=== PATIENT | female | born 1985 | race Caucasian/White ===

== ENCOUNTER 2017-03-26 22:29 | Emergency (ER) | payer OTHER ==
[~2017-03-26 22:29] MED LIST: PREN1CAP7 PO; TRUE METRIX BLO1 KIT; ZANT150T2 PO
--- NOTE | 2017-03-26 23:32 | PD ---
HPI Chief Complaint Contractions Travel History International Travel<30 Days: No Contact w/Intl Traveler<30Days: No Known Affected Area: No History of Present Illness HPI 31-year-old 001, IUP at 39.5 care complicated by obesity, asthma Patient presents complaining of painful contractions that started at 5 PM the range from every 2-10 minutes but on average she is having them every 5 minutes. She reports a increased in intensity and frequency over time. They feel better when she sitting on her birthing ball but otherwise there are no aggravating or alleviating factors and no other attempted treatments. The patient reports good movement. The patient denies any leaking of fluid or vaginal bleeding. The patient reports she had intercourse about 9:30 PM. Weeks Gestation: 39 Para: 1 : 2 History Past Medical History Narrative Medical Obesity, asthma Obstetric History Obstetric History 001 1 Past Surgical History Surgical History: No Previous Surgery Family History Narrative Family History TM, HTN, CVA Social History Alcohol Use: No Tobacco Use: No Substance Abuse: No Allergies-Medications (Allergen,Severity, Reaction): Uncoded Allergies: seasonal alleries (Allergy, Mild, 02/20/16) itchy eyes and coughing. Home Meds Active Scripts True Metrix Blood Glucose W/Device (True Metrix Blood Glucose W/Device) 1 Kit Kit, KIT .XX DIRECTED for Blood Sugar Management, #1 0 Refills Prov:Khalida Mari 02/20/17 Ranitidine (Zantac) 150 Mg Tab, 150 MG PO BID for Reduce Stomach Acid, #60 TAB 6 Refills Prov:Khalida Mari 01/16/17 W/O Vit A W/ Fe Fumar (Citranatal [place]) 27-1-260 Mg Cap, 1 CAP PO DAILY for Nutritional Supplement, #30 CAP 11 Refills Prov:Khalida Mari 08/06/16 W/O Vit A W/ Fe Fumar (Citranatal [place]) 27-1-260 Mg Cap Prov:Khalida Mari 08/06/16 Review of Systems Except as stated in HPI: all other systems reviewed are Neg Physical Exam Narrative GENERAL: Well-nourished, well-developed patient. SKIN: Warm and dry. HEAD: Normocephalic and atraumatic. EYES: No scleral icterus. No injection or drainage. ENT: No nasal drainage noted. Mucous membranes pink. Airway patent. NECK: Supple, trachea midline. No JVD. CARDIOVASCULAR: Regular rate and rhythm without murmurs, gallops, or rubs. RESPIRATORY: Breath sounds equal bilaterally. No accessory muscle use. BREASTS: Deferred ABDOMEN/GI: Abdomen soft, non-tender, bowel sounds present, no rebound, no guarding Gravid GENITOURINARY: External Genitalia: intact and normal in appearance. Normal BUS. Grossly normal rugae. Physiologic discharge, no cervical or vaginal masses noted. SVE 2/thick/high and posterior, unchanged over observation period FHT's: heart tones are in the 120s with moderate long-term variability, good accelerations, no decelerations with a reactive NST and category 1 heart rate tracing EXTREMITIES: No cyanosis or edema. BACK: Nontender without obvious deformity. No CVA tenderness. NEUROLOGICAL: Awake and alert. Motor and sensory grossly within normal limits. Five out of 5 muscle strength in all muscle groups. Normal speech. Psychiatric: Grossly normal memory and affect Musculoskeletal: Grossly normal range of motion, gait, muscle strength MDM Plan Assessment/plan: 1. IUP at 39.5 2. Contractions at term: No evidence of active labor with unchanged cervical exam over observation period. Patient offered Vistaril for rest. Strict labor precautions are given. Discussed signs and symptoms of labor 3. Maternal obesity 4. Maternal asthma 5. well-being: Reassuring testing was reactive NST and FHR that 's reassuring and appropriate for gestational age, category 1 tracing. kick counts daily. 6. Follow-up: Diagnosis Diagnosis: Primary Impression: 39 weeks gestation of Additional Impression: False labor before 37 completed weeks of gestation during in third trimester, antepartum Disposition: 01 DISCHARGE HOME Condition: Critical Khalida Tate MD Mar 26, 2017 23:32
--- NOTE | 2017-03-27 | PD ---
History of Present Illness History of Present Illness NST report Indications IUP at 39.5, maternal obesity, asthma heart rate baseline in the 120s with moderate long-term variability, good accelerations, no decelerations noted. This is a category 1 heart rate tracing and reactive NST Follow-up as clinically indicated Final diagnosis: IUP at 39.5, maternal obesity, asthma, reassuring testing, false labor Khalida Tate MD Mar 27, 2017 00:00
[2017-03-27] MEDS ORDERED: fentaNYL 2MCG-BUPIV 0.125% INJ 100 ML ONE (05:30)
[2017-03-27] MEDS ORDERED: LIDOCAINE HCL 1% 50 ML VIAL ONE (05:31)
[2017-03-27] MEDS ORDERED: OXYTOCIN 30 UNITS-500ML PREMIX 500 ML ONE (05:31)
== END 2017-03-27 00:50 | disposition home or self-care (01) ==
LOC: HOBED 22:29
DX: O47.03 False labor before 37 completed weeks of gestation, third trimester (principal); O99.513 Diseases of the respiratory system complicating pregnancy, third trimester; J45.909 Unspecified asthma, uncomplicated; O99.213 Obesity complicating pregnancy, third trimester; Z3A.39 39 weeks gestation of pregnancy
CPT/HCPCS: 59025; 82948; J2590

== ENCOUNTER 2017-03-27 05:13 | Inpatient (IN) | payer OTHER ==
[~2017-03-27] VITALS: Ht 167.6 cm; Wt 115.0 kg
[2017-03-27] VITALS (43 sets, daily range): BP systolic 96–130; BP diastolic 55–92; PULSE 68–189; RESP 17–18; TEMP 97.3–98.5
[2017-03-27] MEDS ORDERED: LACTATED RINGER'S 1000 ML INJ 1,000 ML IV PRN (05:47)
[2017-03-27] MEDS ORDERED: LACTATED RINGER'S 1000 ML INJ 1,000 ML IV SCH (05:47)
[2017-03-27 05:54] LABS: AUTOMATED NEUTROPHIL # 12.3 TH/MM3 (1.8-7.7); BASOPHIL % 0.1 % (0.0-2.0); HEMO FLAGS DIFF FINAL; LYMPHOCYTE # 1.6 TH/MM3 (1.0-4.8); MEAN CELL VOLUME 83.5 FL (80.0-100.0); MEAN CORPUSCULAR HEMOGLOBIN 28.9 PG (27.0-34.0); MEAN CORPUSCULAR HGB CONC 34.6 % (32.0-36.0); MONO % 2.3 % (0.0-8.0); NEUT % 86.6 % (16.0-70.0); PLATELET COUNT 276 TH/MM3 (150-450); RED BLOOD COUNT 4.43 MIL/MM3 (4.00-5.30); RED CELL DISTRIBUTION WIDTH 14.5 % (11.6-17.2); WHITE BLOOD COUNT 14.2 TH/MM3 (4.0-11.0)
[2017-03-27] MEDS ORDERED: MINERAL OIL 10 ML VIAL TOPICAL PRN (06:00)
[2017-03-27] MEDS ORDERED: CITRIC ACID-SODIUM CITRATE LIQ 30 ML UDC PO SCH (06:00)
[2017-03-27] MEDS ORDERED: LIDOCAINE HCL 1% 50 ML VIAL I-DERMAL PRN (06:00)
[2017-03-27] MEDS ORDERED: SODIUM CHLORID 0.9% 500 ML INJ 500 ML IV PRN (06:00)
[2017-03-27] MEDS ORDERED: OXYTOCIN 30 UNITS-500ML PREMIX 500 ML IV ONE (06:00)
[2017-03-27] MEDS ORDERED: LIDOCAINE HCL 1% 50 ML VIAL INFIL PRN (06:00)
[2017-03-27] MEDS ORDERED: SODIUM CHLOR 0.9% 1000 ML INJ 1,000 ML IV PRN (06:07)
[2017-03-27 06:08] LABS: BACTERIA, URINE RARE /hpf; BLOOD, URINE NEG (NEG); COMMENT (UR) CULT NOT INDICATED; CULTURE IF INDICATED CULT NOT INDICATED; GLUCOSE,URINE NEG (NEG); KETONE, URINE 80 mg/dL (NEG); MUCUS URINE FEW /lpf (OCC); NITRITE,URINE NEG (NEG); PH, URINE 6.5 (5.0-8.5); SQUAMOUS EPITHELIAL CELL URINE 13 /hpf (0-5); URINE COLOR YELLOW (YELLW/STRAW)
--- NOTE | 2017-03-27 06:08 | HHI.HP ---
History & Physical H&P HPI HPI Travel History International Travel<30 Days: No Contact w/Intl Traveler<30Days: No Known Affected Area: No History of Present Illness HPI 31-year-old 001, IUP at 39.5 care complicated by obesity, asthma Patient presents complaining of painful contractions that she states are extremely painful and occurring every 3 min. They feel better when she sitting on her birthing ball but otherwise there are no aggravating or alleviating factors and no other attempted treatments. The patient reports good movement. The patient denies any leaking of fluid or vaginal bleeding. Was here yesterday evening for frequent contractions; she had intercourse at about 9 :30 PM beforehand. On admission, was SVE 2/thick/high and posterior - was d/c'd because of unchanged exam over observation periodWas d/c'd hope because of unchanged cervical exam over observation period. Weeks Gestation: 39 Para: 1 : 2 History (Limited) History Past Medical History Narrative Medical Obesity Asthma GDM Obstetric History Obstetric History 001 1 Past Surgical History Surgical History: No Previous Surgery Family History Narrative Family History TM, HTN, CVA Social History Alcohol Use: No Tobacco Use: No Substance Abuse: No Allergies-Medications Allergies-Medications (Allergen,Severity, Reaction): Uncoded Allergies: seasonal alleries (Allergy, Mild, 02/20/16) itchy eyes and coughing. Home Meds Active Scripts True Metrix Blood Glucose W/Device (True Metrix Blood Glucose W/Device) 1 Kit Kit, KIT .XX DIRECTED for Blood Sugar Management, #1 0 Refills Prov:Khalida Mari 02/20/17 Ranitidine (Zantac) 150 Mg Tab, 150 MG PO BID for Reduce Stomach Acid, #60 TAB 6 Refills Prov:Khalida Mari 01/16/17 W/O Vit A W/ Fe Fumar (Citranatal [place]) 27-1-260 Mg Cap, 1 CAP PO DAILY for Nutritional Supplement, #30 CAP 11 Refills Prov:Khalida Mari 08/06/16 W/O Vit A W/ Fe Fumar (Citranatal [place]) 27-1-260 Mg Cap Prov:Khalida Mari 08/06/16 ROS Review of Systems Except as stated in HPI: all other systems reviewed are Neg Physical Exam Physical Exam Narrative GENERAL: Well-nourished, well-developed patient. SKIN: Warm and dry. HEAD: Normocephalic and atraumatic. EYES: No scleral icterus. No injection or drainage. NECK: Supple, trachea midline. No JVD. RESPIRATORY: Breath sounds equal bilaterally. No accessory muscle use. GENITOURINARY: Cervix: [] Dilatation: 8 cm Effacement: 100 Station: -1 Presentation: [-] Membranes: intact Uterine Contractions: q 4 min FHT's: Category:1 Baseline: 130 Reactive: yes Variability: moderate Decels: no Data Data Data Orders Orders Ob (2e) Additional Admit Info (03/27/17 05:21) Complete Blood Count With Diff (03/27/17 05:29) Hold Clot (03/27/17 05:29) Abo/Rh Blood Type (03/27/17 05:29) Urinalysis - C+S If Indicated (03/27/17 05:40) Drug Screen, Random Urine (03/27/17 05:40) Group B Strep: Negative MDM MDM Medical Record Reviewed: Yes Plan Patient is a 31 y/o @39.5wks admitted for painful contractions. GBS negative. A+ blood type. In active labor phase, /-1. FHT Categ 1. - Anticipate delivery - Monitor and recheck after epidural administration Diagnosis Diagnosis: Primary Impression: 39 weeks gestation of Jenny Miller MD R1 Mar 27, 2017 06:08
--- NOTE | 2017-03-27 07:07 | PD.LABORPN ---
Subjective Subjective AROM @0651. Resulted in sparse mucus and blood discharge, very small amount of fluid. Tolerated well. Objective Vital Signs Vital Signs Date Time Temp Pulse Resp B/P (MAP) Pulse Ox O2 Delivery O2 Flow Rate FiO2 03/27/17 06:45 81 03/27/17 06:45 87 122/67 (85) 03/27/17 06:35 94 03/27/17 06:35 94 125/64 (84) 03/27/17 06:30 91 03/27/17 06:30 68 130/65 (86) 03/27/17 06:26 79 128/73 (91) 03/27/17 06:25 18 03/27/17 06:25 91 03/27/17 06:20 92 03/27/17 06:18 92 130/80 (97) 03/27/17 06:15 87 Objective Pelvic Exam: Cervix: midline Dilatation: 8 cm Effacement: 100% Station: -1 Presentation: vertex Membranes: ruptured Uterine Contractions: yes,q4min FHT's: Category: 1 Baseline: 130 Reactive: yes Variability: moderate Decels: no Gest Age Assessed Date: Mar 27, 2017 Gest Age Assessed Time: 07:06 Artificial rupture of membrane: Yes Artificial ROM date: Mar 27, 2017 Artifical ROM time: 06:51 Assessment/Plan Problem List: (1) 39 weeks gestation of ICD Codes: Z3A.39 - 39 weeks gestation of Status: Acute Assessment and Plan Recheck as needed Jenny Miller MD R1 Mar 27, 2017 07:06
[2017-03-27] MEDS ORDERED: OXYTOCIN 30 UNITS-500ML PREMIX 500 ML IV SCH (09:45)
[2017-03-27] MEDS ORDERED: WITCH HAZEL 50%/GLYCERIN 12.5% 40 PAD JAR TOPICAL PRN (09:45)
[2017-03-27] MEDS ORDERED: ALUMINUM/MAGNESIUM/SIMETH 30 ML CUP PO PRN (09:45)
[2017-03-27] MEDS ORDERED: DOCUSATE SODIUM 50 MG/SENNA 8.6 MG TAB PO PRN (09:45)
[2017-03-27] MEDS ORDERED: SODIUM CHLORIDE 0.9% FLUSH 10 ML FLUSH IV FLUSH PRN (09:45)
[2017-03-27] MEDS ORDERED: BENZOCAINE 20% TOPICAL SPRAY 60 ML CAN TOPICAL PRN (09:45)
[2017-03-27] MEDS ORDERED: ZOLPIDEM TARTRATE 5 MG TAB PO PRN (09:45)
[2017-03-27] MEDS ORDERED: SODIUM CHLORIDE 0.9% FLUSH 10 ML FLUSH IV FLUSH SCH (09:45)
[2017-03-27] MEDS ORDERED: ONDANSETRON ODT 4 MG TAB PO PRN (09:45)
--- NOTE | 2017-03-27 09:48 | PD.OB.DELI ---
Weeks gestation: 39 (6) Gest age assessed date: Mar 27, 2017 Gest age assessed time: 07:06 Pt started active labor?: Yes Active labor start date: Mar 27, 2017 Active labor start time: 02:00 Medical induction of labor?: No Artificial rupture of membrane: No Artificial ROM date: Mar 27, 2017 Artifical ROM time: 06:51 Anesthesia: Epidural Episiotomy: None Vaginal Delivery: Normal, Spontaneous Presentation: Occiput anterior Nuchal Cord: x1 Delayed cord clamping (45 sec): Yes : Male, Single Delivery date: Mar 27, 2017 Delivery time: 09:26 One Minute : 8 Five Minute : 9 Weight: 3225g Placenta: Spontaneous delivery, Intact, 3 vessel cord Laceration: No lacerations Estimated blood loss: 100cc Additional Information 31YO now delivered via at 39/6 weeks. SROM at 0820AM with clear amniotic fluid. APGARS 8/9. No lacerations. Dr Tate supervised and assisted. Dr Rod delivered. Chintan Rod MD R1 Mar 27, 2017 09:48
--- NOTE | 2017-03-27 09:52 | HHI.PR ---
Subjective Remarks The patient progressed to C/C/+1 and commenced spontaneous maternal expulsive efforts with overall reassuring heart tones and excellent descent. The head delivered spontaneously and atraumatically followed by spontaneous and atraumatic delivery of the anterior shoulder. A nuchal cord was noted but the was able to be delivered through the cord and the remainder of the delivered spontaneously and atraumatically. The was placed on the maternal abdomen and was vigorous at delivery. The cord was doubly clamped and cut after a delay. The placenta delivered spontaneously and appeared to be intact. No lacerations were noted. Apgars 8/9. Mother and baby are both doing well. Objective Vital Signs Date Time Temp Pulse Resp B/P (MAP) Pulse Ox O2 Delivery O2 Flow Rate FiO2 03/27/17 09:16 189 126/78 (94) 03/27/17 08:45 75 125/72 (89) 03/27/17 08:31 74 127/68 (87) 03/27/17 08:24 18 03/27/17 08:15 87 122/74 (90) 03/27/17 08:05 83 03/27/17 08:00 92 119/71 (87) 03/27/17 08:00 17 03/27/17 08:00 84 03/27/17 07:55 87 03/27/17 07:50 77 03/27/17 07:45 83 102/63 (76) 03/27/17 07:45 18 03/27/17 07:45 103 03/27/17 07:40 80 03/27/17 07:35 80 03/27/17 07:31 74 96/61 (73) 03/27/17 07:30 77 03/27/17 07:25 78 03/27/17 07:20 73 03/27/17 07:16 75 108/55 (72) 03/27/17 07:15 92 03/27/17 07:10 97.3 17 03/27/17 07:10 82 03/27/17 07:05 90 03/27/17 07:00 79 122/63 (82) 03/27/17 07:00 18 03/27/17 06:55 92 03/27/17 06:50 89 03/27/17 06:45 81 03/27/17 06:45 87 122/67 (85) 03/27/17 06:35 94 03/27/17 06:35 94 125/64 (84) 03/27/17 06:30 91 03/27/17 06:30 68 130/65 (86) 03/27/17 06:26 79 128/73 (91) 03/27/17 06:25 18 03/27/17 06:25 91 03/27/17 06:20 92 03/27/17 06:18 92 130/80 (97) 03/27/17 06:15 87 Result Diagram: 03/27/17 0530 Khalida Tate MD Mar 27, 2017 09:52
[2017-03-27] MEDS: IBUPROFEN 800 MG TAB PO PRN (15:34)
[2017-03-27] MEDS: ACETAMINOPHEN 325 MG TAB PO PRN ×2 (15:34→19:49)
[2017-03-27] MEDS ORDERED: DIPHTH/TETANUS/ACEL PERTUSSIS (BOOSTER) 0.5 ML VIAL/PFS IM ONE (16:00)
[2017-03-27] MEDS ORDERED: MEASLES, MUMPS, RUBELLA VACCINE 0.5 ML VIAL SQ ONE (16:00)
[2017-03-28] MEDS: ACETAMINOPHEN 325 MG TAB PO PRN ×4 (00:08→15:03)
[2017-03-28] MEDS: IBUPROFEN 800 MG TAB PO PRN ×2 (00:09→08:40)
[2017-03-28 08:00] VITALS: BP 117/71; PULSE 84; RESP 18; TEMP 97.6; O2SAT 99
--- NOTE | 2017-03-28 09:22 | HHI.OB ---
Subjective Post Day: 1 Remarks Ms Aranda had no acute events overnight. Pt pain is well controlled on ibuprofen, ambulating, tolerating PO, voiding and BM this morning. Lochia is decreasing. Pt is . Pt would like an IUD. Denies CP, SOB, N/V/D, DVT pain. Objective Vitals/I&O Vital Signs Date Time Temp Pulse Resp B/P (MAP) Pulse Ox O2 Delivery O2 Flow Rate FiO2 03/28/17 08:00 97.6 84 18 117/71 (86) 99 03/27/17 20:00 98.5 83 18 03/27/17 20:00 104/63 (77) 03/27/17 12:30 98.3 84 18 115/67 (83) 03/27/17 11:01 115 107/78 (88) 03/27/17 10:45 86 122/65 (84) 03/27/17 10:45 17 03/27/17 10:30 84 112/66 (81) 03/27/17 10:29 17 03/27/17 10:16 83 107/55 (72) 03/27/17 10:15 17 03/27/17 10:07 85 127/59 (81) 03/27/17 09:52 97.8 18 03/27/17 09:46 96 128/63 (84) Objective Remarks GENERAL: Well-nourished, well-developed patient lying in bed in NAD. CARDIOVASCULAR: Regular rate and rhythm without murmur, gallop, or rub. Normal cap refill. RESPIRATORY: Breath sounds equal bilaterally in all lung monte[place]. No accessory muscle use. ABDOMEN/GI: Abdomen soft, non-tender. Normal BS. Fundus: Firm, non-tender at umbilicus. GENITOURINARY: Light bleeding. EXTREMITIES: No cyanosis or edema, non-tender, without signs of DVT. Medications and IVs Current Medications Medications (Trade) Dose Ordered Sig/Gualberto Route Start Time Stop Time Status Last Admin (NS Flush) 2 ml BID IV FLUSH 03/27/17 09:45 (NS Flush) 2 ml UNSCH PRN IV FLUSH 03/27/17 09:45 (Tylenol) 650 mg Q4H PRN PO 03/27/17 09:45 03/28/17 06:02 (Motrin) 800 mg Q8H PRN PO 03/27/17 09:45 03/28/17 08:40 (Americaine 20% Top Spr) 1 spray Q4H PRN TOPICAL 03/27/17 09:45 03/27/17 15:33 (Tucks Pads) 1 applic QID PRN TOPICAL 03/27/17 09:45 03/27/17 15:33 (Blessing-Colace) 2 tab Q12H PRN PO 03/27/17 09:45 (Ambien) 5 mg HS PRN PO 03/27/17 09:45 (Mag-Al Plus Susp Liq) 15 ml Q8H PRN PO 03/27/17 09:45 (Zofran Odt) 4 mg Q6H PRN PO 03/27/17 09:45 Assessment/Plan Problem List: (1) 39 weeks gestation of ICD Codes: Z3A.39 - 39 weeks gestation of Status: Acute Plan: 31YO delivered 39/1 via and is progressing well at PPD#1. AFVSS. Pain controlled, PO, ambulating, voiding, stooling. Lochia "much less than a period." Breast feeding. No CP, SOB, N/V/D, DVT pain. PLAN: -Routine care -Ibuprofen and/or percocet PRN -Advised showers (no bath) for 2-3 weeks -Plans to get IUD when she follows up with OB in 6 wks -Advised vaginal rest 6 wks Discharge later today or tomorrow Pt discussed with Chintan Martin MD R1 Mar 28, 2017 09:22
--- NOTE | 2017-03-28 13:24 | HHI.DCPOC ---
Discharge Care Plan Report Symptoms to Your Doctor -Temperature above 100.5 degrees -Redness, of incision or excessive or foul smelling drainage -Unusual pain or calf pain -Increased vaginal bleeding -Painful or difficulty urinating -Feelings of extreme sadness or anxiety after 2 weeks Goals to Promote Your Health * To prevent worsening of your condition and complications, please take ibuprofen for pain, take showers (no baths) for the next 2-3 weeks, and vaginal rest (nothing in the vagina and no sexual activity for the next 6 weeks). * To maintain your health at the optimal level, please follow up with your doctor in 6 weeks. Directions to Meet Your Goals Take your medications as prescribed Follow your dietary instruction Follow activity as directed Ensure plenty of rest for recovery Drink fluids for hydration Keep your appointments as scheduled Take your immunizations and boosters as scheduled If your symptoms worsen call your PCP, if no PCP go to Urgent Care Center or Emergency Room Smoking is Dangerous to Your Health. Avoid second hand smoke Call the 24-hour crisis hotline for domestic abuse at Chintan Rod MD R1 Mar 28, 2017 13:24
== END 2017-03-28 17:33 | disposition home or self-care (01) | DRG 775 ==
LOC: HOBED 05:13 → H2EB 05:22 → H1EA 11:48
PROVIDERS: ADMIT Obstetrics & Gynecology; ATTEND Obstetrics & Gynecology
PROC: 10E0XZZ Delivery of Products of Conception, External Approach (ICD-10-PCS; principal; 2017-03-27)
PROC: 10907ZC Drainage of Amniotic Fluid, Therapeutic from Products of Conception, Via Natural or Artificial Opening (ICD-10-PCS; 2017-03-27)
DX: O99.214 Obesity complicating childbirth (principal); Z68.41 Body mass index [BMI] 40.0-44.9, adult; E66.9 Obesity, unspecified; O99.52 Diseases of the respiratory system complicating childbirth; J45.909 Unspecified asthma, uncomplicated; O69.81X0 Labor and delivery complicated by cord around neck, without compression, not applicable or unspecified; Z37.0 Single live birth; Z3A.39 39 weeks gestation of pregnancy
CPT/HCPCS: 76818; 80307; 81001; 82948; 85025; 86900; 86901; J2590